=== PATIENT | female | born 1995 | race Caucasian/White ===

== ENCOUNTER 2016-07-11 00:16 | Inpatient (IN) | payer BC ==
[2016-07-11] VITALS (71 sets, daily range): BP systolic 90–135; BP diastolic 51–83; PULSE 64–117; TEMP 98.2–98.8
[~2016-07-11] VITALS: Ht 188 cm; Wt 105.9 kg
[2016-07-11 01:35] LABS: BASO % 0.2 % (0.0-2.0); EOS # 0.1 (0.0-0.7); EOS % 0.7 % (0-4.0); GRAN # 6.5 (1.4-6.5); GRAN % 70.6 % (42.2-75.2); HEMATOCRIT 33.4 % (37.0-47.0); LYMPH % 22.3 % (20.0-51.0); MEAN CELL VOLUME 84 fl (80.0-100.0); MEAN CORPUSCULAR HEMOGLOBIN 28 pg (27.0-31.0); MEAN CORPUSCULAR HGB CONC 33 g/dl (33.0-37.0); MEAN PLATELET VOLUME 10.9 fl (7.4-10.4); MONO # 0.5 (0.1-0.6); MONO % 5.9 % (1.7-9.3); PLATELET COUNT 246 K/mm3 (130-400); RED BLOOD COUNT 3.98 M/mm3 (4.10-5.30); REDCELL DISTRIBUTION WIDTH-CV 13.4 % (11.5-14.5); WHITE BLOOD COUNT 9.2 K/mm3 (4.8-10.8)
[2016-07-11] MEDS ORDERED: PRENATAL MVI PO (02:08)
[2016-07-11] MEDS ORDERED: ZANTAC 7575 MG (02:09)
[2016-07-12 00:40] VITALS: BP 120/64; PULSE 95; TEMP 98.7
[2016-07-12 04:30] VITALS: BP 117/50; PULSE 75; TEMP 97.6
[2016-07-12 07:42] VITALS: BP 114/64; PULSE 75; TEMP 98.2
[2016-07-12 15:30] VITALS: BP 116/62; PULSE 82; TEMP 98.8
[2016-07-12 20:30] VITALS: BP 135/88; PULSE 83; TEMP 98.5
[2016-07-13 03:38] VITALS: BP 123/81; PULSE 84; TEMP 97.8
[2016-07-13 07:00] VITALS: BP 111/66; PULSE 74; TEMP 98.1
[2016-07-13] MEDS ORDERED: IBU800 M1 PO (11:01)
[2016-07-13] MEDS ORDERED: PERCOCET 325 MG1 TA2 PO (11:02)
== END 2016-07-13 15:00 | disposition home or self-care (01) | DRG 775 ==
LOC: LDR 00:16 → OB 00:16 → LDR 03:00 → OB 06:53
PROVIDERS: Obstetrics & Gynecology
PROC: 10E0XZZ Delivery of Products of Conception, External Approach (ICD-10-PCS; principal; 2016-07-11)
PROC: 0KQM0ZZ Repair Perineum Muscle, Open Approach (ICD-10-PCS; 2016-07-11)
PROC: 3E033VJ Introduction of Other Hormone into Peripheral Vein, Percutaneous Approach (ICD-10-PCS; 2016-07-11)
DX: O99.824 Streptococcus B carrier state complicating childbirth (principal); O69.2XX0 Labor and delivery complicated by other cord entanglement, with compression, not applicable or unspecified; O70.1 Second degree perineal laceration during delivery; Z3A.39 39 weeks gestation of pregnancy; Z37.0 Single live birth
CPT/HCPCS: J2540; J2590; J7120

== ENCOUNTER 2019-12-23 16:06 | Inpatient (IN) | payer BC ==
[~2019-12-23] VITALS: Ht 188 cm; Wt 106.8 kg
[~2019-12-23 16:06] MED LIST: IBU800 M1 PO; PERCOCET 325 MG1 TA2 PO; PRENATAL MVI PO; ZANTAC 7575 MG
[2020-01-03] VITALS (12 sets, daily range): BP systolic 110–130; BP diastolic 60–80; PULSE 82–111; TEMP 98.3
--- NOTE | 2020-01-03 20:20 | NUR ---
PT ARRIVED TO UNIT AMBULATORY WITH SPOUSE WITH COMPLAINTS OF CONTRACTIONS. ORIENTED TO ROOM, CHANGED INTO GOWN, EFM X2 APPLIED, VS OBTAINED, SVE PERFORMED.
[2020-01-03 21:22] LABS: BASO % 0.3 % (0.0-2.0); EOS # 0.1 (0.0-0.7); EOS % 0.4 % (0-4.0); GRAN # 11.8 (1.4-6.5); HEMOGLOBIN 12.2 g/dl (12.5-16.0); LYMPH # 2.4 (1.2-3.4); LYMPH % 15.9 % (20.0-51.0); MEAN CELL VOLUME 88 fl (80.0-100.0); MEAN CORPUSCULAR HEMOGLOBIN 30 pg (27.0-31.0); MEAN CORPUSCULAR HGB CONC 34 g/dl (33.0-37.0); MEAN PLATELET VOLUME 10.4 fl (7.4-10.4); MONO # 0.7 (0.1-0.6); MONO % 4.9 % (1.7-9.3); PLATELET COUNT 256 K/mm3 (130-400); RED BLOOD COUNT 4.13 M/mm3 (4.10-5.30); REDCELL DISTRIBUTION WIDTH-CV 13.2 % (11.5-14.5)
[2020-01-03 21:24] LABS: HEMATOCRIT 36.4 % (37.0-47.0)
--- NOTE | 2020-01-03 21:35 | NUR ---
2119- Suzie FRAIRE CRNA IN ROOM FOR EPIDURAL PLACEMENT. PT SITTING UP AT BEDSIDE, BP SET TO EVERY 5 MINUTES. 2125- SINGLE SHOT GIVEN BY Suzie FRAIRE CRNA, PT TOLERATED WELL. 2134- PT REPOSITIONED INTO HIGH FOWLERS.
[2020-01-03] MEDS ORDERED: ZYRTEC5 MG PO (22:04)
--- NOTE | 2020-01-03 22:51 | NUR ---
2242- PT COMPLETE/0 225- DR JO IN ROOM TO EVALUATE. 2254- PT PUSHING WITH DR. JO.
--- NOTE | 2020-01-03 23:12 | NUR ---
DR JO DISCUSSES WITH PT OPTIONS OF EITHER LABORING DOWN OR CONTINUING TO PUSH, FEELS THAT BABY'S HEAD HAS NOT HAD TIME TO MOLD DUE TO RAPID DILATION SINCE ARRIVAL. PT OPTS TO STOP PUSHING AND LABOR DOWN AT THIS TIME.
--- NOTE | 2020-01-03 23:33 | NUR ---
PT PUSHES TWICE WITH THIS NURSE, STATES FEELING PAIN WITH CONTRACTIONS. BABY REMAINS AT 0 STATION. WILL CONTINUE TO LABOR DOWN.
[2020-01-04] VITALS (16 sets, daily range): BP systolic 98–127; BP diastolic 46–78; PULSE 72–117; TEMP 97.2–98.5
--- NOTE | 2020-01-04 01:25 | NUR ---
0045-DR. JO IN ROOM TO EVALUATE PT. SVE OF COMPLETE/+1. 0046- BEGINS PUSHING WITH DR. JO, PUSHING WELL. 0116- SPONTANEOUS VAGINAL DELIVERY OF VIABLE BABY BOY. CORD CLAMPED BY DR. JO, CUT BY FOB. BABY TO MOTHER'S CHEST, BABY CARES ASSUMED BY Santiago MORALES RN. 0119- SPONTANEOUS VAGINAL DELIVERY OF INTACT PLACENTA, PITOCIN STARTED AT 333ML/HR. 0120- DR. JO PERFORMS STRAIGHT CATH, APPROXIMATELY 20 MLS OUT. NO REPAIR NEEDED FOR SKIDMARKS. 0125- RECOVERY STARTED.
--- NOTE | 2020-01-04 03:15 | NUR ---
0300- pt up to bathroom at this time, voided 300mls clear yellow urine. epidural removed, blue tip intact. assisted with pericare, ice pack and mesh underwear on. pt ambulated to without difficulty. oriented to room.
[2020-01-04] MEDS ORDERED: PERCOCET 325 MG1 TA2 PO (10:19)
[2020-01-04] MEDS ORDERED: MOTRIN 800800 MG/TAB PO (10:19)
[2020-01-05 07:50] VITALS: BP 123/77; PULSE 98; TEMP 98.7
== END 2020-01-05 11:55 | disposition home or self-care (01) | DRG 807 ==
LOC: LDR 01-03 20:59 → OB 01-04 07:42 → LDR 01-04 09:39 → OB 01-05 11:55
PROVIDERS: ADMIT Obstetrics & Gynecology
PROC: 10E0XZZ Delivery of Products of Conception, External Approach (ICD-10-PCS; principal; 2020-01-04)
PROC: 10907ZC Drainage of Amniotic Fluid, Therapeutic from Products of Conception, Via Natural or Artificial Opening (ICD-10-PCS; 2020-01-04)
DX: O99.824 Streptococcus B carrier state complicating childbirth (principal); Z37.0 Single live birth; Z3A.39 39 weeks gestation of pregnancy
CPT/HCPCS: J2540; J2590; J2795; J7120

== ENCOUNTER → 2020-01-03 | Outpatient (CLI) | payer BC ==
[~2020-01-03] MED LIST changes: +MOTRIN 800800 MG/TAB PO; +ZYRTEC5 MG PO
== END ==
LOC: LDRO 20:12
DX: Z01.89 Encounter for other specified special examinations (principal)

== ENCOUNTER → 2021-03-17 | Outpatient (CLI) | payer BC | LOC: ZCOL.LAB | DX: Z20.822 Contact with and (suspected) exposure to COVID-19 (principal) ==

== ENCOUNTER 2021-03-19 06:27 | Inpatient (IN) | payer BC ==
[2021-03-19] VITALS (28 sets, daily range): BP systolic 91–141; BP diastolic 50–81; PULSE 61–111; TEMP 97.7–98.3
[~2021-03-19] VITALS: Ht 185.4 cm; Wt 104.5 kg
--- NOTE | 2021-03-19 07:23 | NUR ---
Up to BR, off EFM @ this time.
--- NOTE | 2021-03-19 07:37 | NUR ---
Returns from BR, placed back on EFM.
[2021-03-19 07:44] LABS: BASO % 0.4 % (0.0-2.0); EOS # 0.2 (0.0-0.7); EOS % 1.5 % (0-4.0); GRAN # 6.7 (1.4-6.5); GRAN % 65.7 % (42.2-75.2); HEMOGLOBIN 10.9 g/dl (12.5-16.0); LYMPH # 2.6 (1.2-3.4); LYMPH % 25.7 % (20.0-51.0); MEAN CELL VOLUME 87 fl (80.0-100.0); MEAN CORPUSCULAR HEMOGLOBIN 28 pg (27.0-31.0); MEAN CORPUSCULAR HGB CONC 33 g/dl (33.0-37.0); MEAN PLATELET VOLUME 10.6 fl (7.4-10.4); MONO # 0.6 (0.1-0.6); MONO % 6.2 % (1.7-9.3); PLATELET COUNT 278 K/mm3 (130-400); RED BLOOD COUNT 3.85 M/mm3 (4.10-5.30); REDCELL DISTRIBUTION WIDTH-CV 13.4 % (11.5-14.5)
--- NOTE | 2021-03-19 07:46 | NUR ---
Variable decel noted. Repositioned to left lateral.
[2021-03-19 07:52] LABS: HEMATOCRIT 33.4 % (37.0-47.0)
--- NOTE | 2021-03-19 08:32 | NUR ---
AROM by , clear fluid noted. Requests epidural @ this time. LR bolus begun.
--- NOTE | 2021-03-19 08:36 | NUR ---
YOUNG Fournier, notified.
--- NOTE | 2021-03-19 11:31 | NUR ---
1131- here. Repeat SVE /+1. Practice push with instruction at 1132. 1140: Vacuum applied by , as noted FHT down since 1132, moderate variability remains. Charge nurse notified (MATT Chacon). 1141: Vacuum assisted vaginal delivery of head, no pop offs noted. 1141: Vaginal delivery of female infant by . to abdomen. Dried and stimulated by nursery nurse Joan Zuniga RN. 1144: Spontaneous vaginal delivery of placenta by . Pit bolus begun immediately following.
--- NOTE | 2021-03-19 11:45 | NUR ---
repairs superficial perineal lac with 4-[address]
--- NOTE | 2021-03-19 13:30 | NUR ---
Ambulates to bathroom with standby assist only for first time post delivery. Steady gait noted. Able to spontaneously void. Britayn care provided. Clean gown, britany pad, mesh underwear, ice pack provided. Ambulates to room 219.
[2021-03-20 02:05] VITALS: BP 122/79; PULSE 66; TEMP 97.9
[2021-03-20 07:43] VITALS: BP 117/72; PULSE 82; TEMP 98.1
[2021-03-20] MEDS ORDERED: IBU800 M1 PO (09:25)
[2021-03-20] MEDS ORDERED: PERCOCET 325 MG1 TA2 PO (09:25)
== END 2021-03-20 13:40 | disposition home or self-care (01) | DRG 807 ==
LOC: LDR 06:27 → OB 11:56
PROVIDERS: ADMIT Obstetrics & Gynecology
PROC: 10D07Z6 Extraction of Products of Conception, Vacuum, Via Natural or Artificial Opening (ICD-10-PCS; principal; 2021-03-19)
PROC: 0HQ9XZZ Repair Perineum Skin, External Approach (ICD-10-PCS; 2021-03-19)
DX: O76 Abnormality in fetal heart rate and rhythm complicating labor and delivery (principal); Z37.0 Single live birth; Z3A.39 39 weeks gestation of pregnancy; O99.02 Anemia complicating childbirth; D64.9 Anemia, unspecified; O70.0 First degree perineal laceration during delivery
CPT/HCPCS: J2540; J2590; J7120